=== PATIENT | male | born 1985 | race Caucasian/White ===

== ENCOUNTER 2024-09-21 20:12 | Emergency (ER) | payer OTHER, BC | END 2024-09-21 21:00 | disposition home or self-care (01) | LOC: KA.ED 20:12 | DX: S50.811A Abrasion of right forearm, initial encounter (principal); S50.812A Abrasion of left forearm, initial encounter; S30.810A Abrasion of lower back and pelvis, initial encounter; S80.812A Abrasion, left lower leg, initial encounter; V89.2XXA Person injured in unspecified motor-vehicle accident, traffic, initial encounter | CPT/HCPCS: 99283 ==

== ENCOUNTER 2024-10-05 23:25 | Emergency (ER) | payer BC | END 2024-10-06 00:18 | disposition home or self-care (01) | LOC: KA.ED 23:25 | DX: R07.81 Pleurodynia (principal) | CPT/HCPCS: 71100-LT; 71101-RT; 99283 ==